=== PATIENT | male | born 1980 | race Two or more races ===

== ENCOUNTER 2022-08-18 15:45 | Outpatient (CLI) | payer OTHER, SELFPAY | END 2022-08-18 15:46 | disposition home or self-care (01) | PROVIDERS: PCP Family Medicine; Visit Provider Student in an Organized Health Care Education/Training Program | DX: M25.571 Pain in right ankle and joints of right foot (principal); M25.471 Effusion, right ankle | CPT/HCPCS: 84550; 85651; 86140 ==

== ENCOUNTER 2022-09-09 15:37 | Outpatient (CLI) | payer OTHER, SELFPAY | END 2022-09-09 15:38 | disposition home or self-care (01) | PROVIDERS: PCP Family Medicine; Visit Provider Family Medicine | DX: Z00.00 Encounter for general adult medical examination without abnormal findings (principal); M10.9 Gout, unspecified; Z13.6 Encounter for screening for cardiovascular disorders | CPT/HCPCS: 80048; 80061 ==

== ENCOUNTER 2023-03-24 12:33 | Outpatient (CLI) | payer OTHER, SELFPAY | END 2023-03-24 12:34 | disposition home or self-care (01) | PROVIDERS: PCP Family Medicine; Visit Provider Nurse Practitioner Family | DX: M10.9 Gout, unspecified (principal); M25.579 Pain in unspecified ankle and joints of unspecified foot | CPT/HCPCS: 84550; 85651; 86140 ==